=== PATIENT | female | born 1960 | race African-American/Black ===

== ENCOUNTER 2018-08-13 15:07 | Emergency (ER) | payer MEDICARE, MEDICAID ==
[~2018-08-13] VITALS: Ht 167.6 cm; Wt 80.0 kg
[2018-08-13] MEDS ORDERED: BACITRACIN ZINC OINT UDPKT TOP ONE (18:00)
[2018-08-13 18:29] VITALS: BP 120/81
[2018-08-13] MEDS ORDERED: ACETAMINOPHEN 500MG TABLET PO ONE (19:00)
== END 2018-08-13 19:17 | disposition home or self-care (01) ==
LOC: ER 15:07
DX: S61.301A Unspecified open wound of left index finger with damage to nail, initial encounter (principal); Y93.E5 Activity, floor mopping and cleaning; Y92.098 Other place in other non-institutional residence as the place of occurrence of the external cause
CPT/HCPCS: 99283